=== PATIENT | male | born 1965 | race African-American/Black ===

== ENCOUNTER 2023-05-07 19:44 | Inpatient (IN) | payer BC ==
[2023-05-07 22:18] VITALS: BMI 21.4
[2023-05-08] MEDS ORDERED: ONDANSETRON *ODT* 4 MG TABLET SL PRN (01:16)
[2023-05-08] MEDS ORDERED: MAG HYDROX/AL HYDROX/SIMETH 30 ML UNIT-DOSE CUP PO PRN (01:16)
[2023-05-08] MEDS ORDERED: BENZOCAINE/MENTHOL (CHLORASEPTIC ) LOZENGE MM PRN (01:16)
[2023-05-08] MEDS ORDERED: MAGNESIUM HYDROX 2400MG/30ML ORAL SUSPENSION 30 ML CUP PO PRN (01:16)
[2023-05-08] MEDS ORDERED: NALOXONE HCL 0.4 MG/ML VIAL IM PRN (01:16)
[2023-05-08] MEDS ORDERED: BISMUTH SUBSALICYLATE 524 MG/30 ML PO PRN (01:16)
[2023-05-08] MEDS ORDERED: POLYETHYLENE GLYCOL (HEALTHYLAX) 3350 17 GM PACKET PO PRN (01:16)
[2023-05-08] MEDS ORDERED: LORazepam 1 MG TABLET PO PRN (01:16)
[2023-05-08] MEDS ORDERED: guaiFENesin 600 MG TABLET.ER (FP) PO PRN (01:16)
[2023-05-08] MEDS ORDERED: ACETAMINOPHEN 325 MG TABLET (FP) PO PRN (01:16)
[2023-05-08] MEDS ORDERED: BENZONATATE 200 MG CAPSULE PO PRN (01:16)
[2023-05-08] MEDS ORDERED: IBUPROFEN 400 MG TABLET (FP) PO PRN (01:16)
[2023-05-08] MEDS ORDERED: NICOTINE POLACRILEX 2 MG GUM BUC PRN (01:16)
[2023-05-08] MEDS ORDERED: IBUPROFEN 600 MG TABLET (FP) PO PRN (01:16)
[2023-05-08] MEDS ORDERED: NALOXONE HCL (KLOXXADO) 8 MG SPRAY NS PRN (01:16)
[2023-05-08] MEDS ORDERED: LOPERAMIDE HCL 2 MG CAPSULE PO PRN (01:16)
[2023-05-08] MEDS: LORazepam 2 MG TABLET PO SCH ×4 (04:27→22:28)
[2023-05-08] MEDS: PRENATAL VITAMINS W/ FOLIC ACID TABLET (FP) PO SCH (10:17)
[2023-05-08] MEDS: NICOTINE 14 MG/24 HOURS TOPICAL PATCH TD SCH (10:18)
[2023-05-08] MEDS: levETIRAcetam 250 MG TABLET PO SCH ×2 (11:15→22:28)
[2023-05-08] MEDS: PANTOPRAZOLE 40 MG TABLET PO SCH (11:17)
[2023-05-08 13:53] LABS: HEMATOCRIT 41.2 % (35.4-49); HEMOGLOBIN 13.3 GM/dL (11.7-16.9); MCH 32.5 pg (25.7-33.7); MCHC 32.3 g/dl (32.0-35.9); MEAN CELL VOLUME 100.5 fl (80-96); MEAN PLT VOLUME 9.5 fl (7.5-11.1); PLATELET COUNT 203 10^3/uL (134-434); RDW 16.6 % (11.9-15.9); WHITE BLOOD COUNT 3.6 K/mm3 (4.0-10.0)
[2023-05-08 14:20] LABS: POTASSIUM 4.7 mmol/L (3.5-5.1)
[2023-05-08 14:41] LABS: BLOOD UREA NITROGEN 12.7 mg/dL (7-18); CALCIUM 8.8 mg/dL (8.5-10.1)
[2023-05-08 14:42] LABS: ALBUMIN 3.2 g/dl (3.4-5.0)
[2023-05-08 14:46] LABS: BILIRUBIN,TOTAL 0.8 mg/dL (0.2-1)
[2023-05-08 14:48] LABS: CREATININE 0.7 mg/dL (0.55-1.3); TOT PROT 6.8 g/dl (6.4-8.2)
[2023-05-08] MEDS: SACUBITRIL/VALSARTAN 49 MG-51 MG TABLET PO SCH (22:27)
[2023-05-08] MEDS: ATORVASTATIN CA 40 MG TABLET (FP) PO SCH (22:28)
[2023-05-08] MEDS: APIXABAN 5 MG TABLET PO SCH (22:28)
[2023-05-08] MEDS: THIAMINE HCL 100 MG TABLET (FP) PO SCH (22:28)
[2023-05-08] MEDS: MELATONIN 5 MG TABLETS PO SCH (22:29)
[2023-05-09] MEDS: LORazepam 1 MG TABLET PO SCH ×4 (05:33→22:34)
[2023-05-09] MEDS: PANTOPRAZOLE 40 MG TABLET PO SCH (06:39)
[2023-05-09] MEDS ORDERED: NALTREXONE HCL 50 MG TABLET PO SCH (10:00)
[2023-05-09] MEDS: levETIRAcetam 250 MG TABLET PO SCH ×2 (10:21→22:33)
[2023-05-09] MEDS: PRENATAL VITAMINS W/ FOLIC ACID TABLET (FP) PO SCH (10:21)
[2023-05-09] MEDS: SACUBITRIL/VALSARTAN 49 MG-51 MG TABLET PO SCH ×2 (10:21→22:33)
[2023-05-09] MEDS: FUROSEMIDE 40 MG TABLET (FP) PO SCH (10:21)
[2023-05-09] MEDS: APIXABAN 5 MG TABLET PO SCH ×2 (10:21→22:33)
[2023-05-09] MEDS: FOLIC ACID 1 MG TABLET (FP) PO SCH (10:22)
[2023-05-09] MEDS: NICOTINE 14 MG/24 HOURS TOPICAL PATCH TD SCH (10:24)
[2023-05-09] MEDS: ATORVASTATIN CA 40 MG TABLET (FP) PO SCH (22:33)
[2023-05-09] MEDS: THIAMINE HCL 100 MG TABLET (FP) PO SCH (22:33)
[2023-05-09] MEDS: MELATONIN 5 MG TABLETS PO SCH (22:33)
[2023-05-10] MEDS ORDERED: LORazepam 0.5 MG TABLET PO PRN
[2023-05-10] MEDS: LORazepam 0.5 MG TABLET PO SCH ×4 (06:00→22:25)
[2023-05-10] MEDS: PANTOPRAZOLE 40 MG TABLET PO SCH (06:03)
[2023-05-10] MEDS: PRENATAL VITAMINS W/ FOLIC ACID TABLET (FP) PO SCH (10:36)
[2023-05-10] MEDS: FUROSEMIDE 40 MG TABLET (FP) PO SCH (10:36)
[2023-05-10] MEDS: SACUBITRIL/VALSARTAN 49 MG-51 MG TABLET PO SCH ×2 (10:37→22:25)
[2023-05-10] MEDS: NICOTINE 14 MG/24 HOURS TOPICAL PATCH TD SCH (10:37)
[2023-05-10] MEDS: APIXABAN 5 MG TABLET PO SCH ×2 (10:37→22:25)
[2023-05-10] MEDS: levETIRAcetam 250 MG TABLET PO SCH ×2 (10:37→22:25)
[2023-05-10] MEDS: FOLIC ACID 1 MG TABLET (FP) PO SCH (10:38)
[2023-05-10] MEDS: THIAMINE HCL 100 MG TABLET (FP) PO SCH (22:25)
[2023-05-10] MEDS: ATORVASTATIN CA 40 MG TABLET (FP) PO SCH (22:25)
[2023-05-10] MEDS: MELATONIN 5 MG TABLETS PO SCH (22:26)
[2023-05-11] MEDS ORDERED: LORazepam 0.5 MG TABLET PO ONE (05:00)
[2023-05-11] MEDS: PANTOPRAZOLE 40 MG TABLET PO SCH (06:06)
[2023-05-11 10:50] VITALS: BP 149/89; PULSE 118; RESP 17; TEMP 97.8
== END 2023-05-11 09:17 | disposition home or self-care (01) | DRG 775 ==
LOC: YASAS 19:44 → Y6N 05-08 02:01
PROVIDERS: ADMIT Allergy & Immunology; ATTEND Surgery
PROC: HZ2ZZZZ Detoxification Services for Substance Abuse Treatment (ICD-10-PCS; principal; 2023-05-08)
DX: F10.230 Alcohol dependence with withdrawal, uncomplicated (principal); E78.5 Hyperlipidemia, unspecified; D50.9 Iron deficiency anemia, unspecified; I11.0 Hypertensive heart disease with heart failure; I50.9 Heart failure, unspecified; I48.91 Unspecified atrial fibrillation; Z79.01 Long term (current) use of anticoagulants; Z87.19 Personal history of other diseases of the digestive system
CPT/HCPCS: 36415; 80053; 85027; 86780; 87635; 87811; 93005; 93010